=== PATIENT | female | born 1955 | race Hispanic/Latino ===

== ENCOUNTER → 2023-05-27 | Outpatient (CLI) | payer SELFPAY ==
[~2023-05-27] MED LIST: HYDR25TA PO; LEVO50TA11 PO
== END | disposition home or self-care (01) ==
LOC: RAH 09:06
PROVIDERS: ATTEND Internal Medicine Cardiovascular Disease
DX: Z13.6 Encounter for screening for cardiovascular disorders (principal); R93.1 Abnormal findings on diagnostic imaging of heart and coronary circulation; I25.10 Atherosclerotic heart disease of native coronary artery without angina pectoris
CPT/HCPCS: 75571